=== PATIENT | male | born 1975 | race African-American/Black ===

== ENCOUNTER 2017-09-20 18:42 | Emergency (ER) | payer OTHER ==
[~2017-09-20] VITALS: Ht 190.5 cm; Wt 104.3 kg
[~2017-09-20 18:42] MED LIST: CEFUROXIME500 MG PO; FLONASE16 GM NASAL; KETO10TA2 PO
[2017-09-21] MEDS ORDERED: PEPCID40 MG PO (05:41)
[2017-09-21] MEDS ORDERED: ZOFRAN8 MG PO (05:41)
== END 2017-09-21 05:35 | disposition home or self-care (01) ==
LOC: ER 18:42
DX: J11.1 Influenza due to unidentified influenza virus with other respiratory manifestations (principal); E86.0 Dehydration

== ENCOUNTER 2017-11-28 19:50 | Emergency (ER) | payer OTHER ==
[~2017-11-28] VITALS: Ht 188 cm; Wt 93.0 kg
[~2017-11-28 19:50] MED LIST changes: +PEPCID40 MG PO; +ZOFRAN8 MG PO
[2017-11-29] MEDS ORDERED: IBUPROFEN800 MG PO (01:59)
== END 2017-11-29 02:09 | disposition home or self-care (01) ==
LOC: ER 19:50
DX: S00.83XA Contusion of other part of head, initial encounter (principal); S60.211A Contusion of right wrist, initial encounter; S30.0XXA Contusion of lower back and pelvis, initial encounter; V49.9XXA Car occupant (driver) (passenger) injured in unspecified traffic accident, initial encounter; Y93.89 Activity, other specified; Y92.488 Other paved roadways as the place of occurrence of the external cause; Y99.8 Other external cause status

== ENCOUNTER 2018-01-10 01:17 | Emergency (ER) | payer OTHER ==
[~2018-01-10] VITALS: Ht 188 cm; Wt 102.1 kg
[~2018-01-10 01:17] MED LIST changes: +IBUPROFEN800 MG PO
[2018-01-10] MEDS ORDERED: CEFUROXIME500 MG PO (02:17)
[2018-01-10] MEDS ORDERED: KETO10TA2 PO (02:17)
[2018-01-10] MEDS ORDERED: CORTISPORIN EAR10 M1 OT (02:28)
== END 2018-01-10 02:32 | disposition home or self-care (01) ==
LOC: ER 01:17
DX: H66.92 Otitis media, unspecified, left ear (principal)

== ENCOUNTER 2018-05-09 21:56 | Emergency (ER) | payer OTHER ==
[~2018-05-09] VITALS: Ht 182.9 cm; Wt 104.3 kg
[~2018-05-09 21:56] MED LIST changes: +CORTISPORIN EAR10 M1 OT
[2018-05-10] MEDS ORDERED: KETO10TA2 PO (03:11)
[2018-05-10] MEDS ORDERED: CONEX TABLET1 EACH PO (03:11)
== END 2018-05-10 03:53 | disposition home or self-care (01) ==
LOC: ER 21:56
DX: H60.8X2 Other otitis externa, left ear (principal); J30.89 Other allergic rhinitis; R55 Syncope and collapse; J11.1 Influenza due to unidentified influenza virus with other respiratory manifestations

== ENCOUNTER 2018-08-04 00:08 | Emergency (ER) | payer OTHER ==
[~2018-08-04] VITALS: Ht 182.9 cm; Wt 102.1 kg
[~2018-08-04 00:08] MED LIST changes: +CONEX TABLET1 EACH PO
[2018-08-04] MEDS ORDERED: ZYNCOF 20-400120 ML PO (04:24)
[2018-08-04] MEDS ORDERED: CEFUROXIME500 MG PO (04:24)
[2018-08-04] MEDS ORDERED: ZYRTEC10 M2 PO (04:24)
[2018-08-04] MEDS ORDERED: FLONASE ALLERG9.9 ML NASAL (04:24)
== END 2018-08-04 21:38 | disposition home or self-care (01) ==
LOC: ER 00:08
DX: N39.0 Urinary tract infection, site not specified (principal); J06.9 Acute upper respiratory infection, unspecified

== ENCOUNTER 2021-08-11 00:35 | Emergency (ER) | payer OTHER ==
[~2021-08-11] VITALS: Ht 190.5 cm; Wt 113.4 kg
[~2021-08-11 00:35] MED LIST changes: +FLONASE ALLERG9.9 ML NASAL; +ZYNCOF 20-400120 ML PO; +ZYRTEC10 M2 PO
[2021-08-11] MEDS ORDERED: CIPRO500 MG PO (06:21)
== END 2021-08-11 06:28 ==
LOC: ER 00:35
DX: R10.31 Right lower quadrant pain (principal); N39.0 Urinary tract infection, site not specified